=== PATIENT | male | born 1935 | race Hispanic/Latino ===

== ENCOUNTER 2017-04-16 06:36 | Day surgery (SDC) | payer OTHER ==
[~2017-04-16] VITALS: Ht 180.3 cm; Wt 90.6 kg
[~2017-04-16 06:36] MED LIST: AMLO5TAB2 PO; LISI40TA4 PO; METO50TA18 PO; SERT25TA5 PO
[2017-04-16] MEDS ORDERED: SODIUM CHLORIDE 0.9% 1000ML 1,000 ML IV ONE (06:51)
[2017-04-16 07:06] VITALS: BP 126/74
[2017-04-16] MEDS ORDERED: PROPOFOL 10 MG/ML 20ML VIAL IV ONE (08:40)
[2017-04-16] MEDS ORDERED: EPHEDRINE SULFATE 50 MG/ML AMPULE ONE (09:10)
== END 2017-04-16 09:42 | disposition home or self-care (01) ==
LOC: DAH 06:36
PROVIDERS: ATTEND Internal Medicine Gastroenterology
DX: Z12.11 Encounter for screening for malignant neoplasm of colon (principal); I10 Essential (primary) hypertension; F32.9 Major depressive disorder, single episode, unspecified; Z79.899 Other long term (current) drug therapy; Z98.890 Other specified postprocedural states; K57.30 Diverticulosis of large intestine without perforation or abscess without bleeding
CPT/HCPCS: 93005; A4606; G0121; J2704; J3490; J7030

== ENCOUNTER → 2017-06-12 | Outpatient (CLI) | payer OTHER | END | disposition home or self-care (01) | LOC: SHCH 13:50 | PROVIDERS: ATTEND Internal Medicine Cardiovascular Disease | DX: I11.0 Hypertensive heart disease with heart failure (principal); I50.9 Heart failure, unspecified | CPT/HCPCS: 93306 ==

== ENCOUNTER → 2019-12-25 | Outpatient (CLI) | payer OTHER ==
[~2019-12-25] MED LIST changes: +AMLO-257 PO; -AMLO5TAB2 PO
== END | disposition home or self-care (01) ==
LOC: RAH 12:42
PROVIDERS: ATTEND Urology
DX: K42.9 Umbilical hernia without obstruction or gangrene (principal); N20.0 Calculus of kidney; N13.39 Other hydronephrosis; K57.30 Diverticulosis of large intestine without perforation or abscess without bleeding; M47.817 Spondylosis without myelopathy or radiculopathy, lumbosacral region
CPT/HCPCS: 74176; 76770

== ENCOUNTER → 2021-02-01 | Outpatient (CLI) | payer OTHER ==
[~2021-02-01] MED LIST changes: +IOHEXOL-350 75 ML VIAL IV ONE; -LISI40TA4 PO; +LISI40TA9 PO; +SERT-438 PO; -SERT25TA5 PO
== END | disposition home or self-care (01) ==
LOC: RAH 08:55
PROVIDERS: ATTEND Urology
DX: N32.89 Other specified disorders of bladder (principal); R31.29 Other microscopic hematuria; I70.8 Atherosclerosis of other arteries; J98.11 Atelectasis; K40.90 Unilateral inguinal hernia, without obstruction or gangrene, not specified as recurrent; K57.90 Diverticulosis of intestine, part unspecified, without perforation or abscess without bleeding; M47.815 Spondylosis without myelopathy or radiculopathy, thoracolumbar region
CPT/HCPCS: 74178; Q9967